=== PATIENT | male | born 1935 | race Caucasian/White ===

== ENCOUNTER 2024-01-06 21:39 | Inpatient (IN) | payer MEDICARE, OTHER ==
[2024-01-06] MEDS ORDERED: Docusate Calcium (SURFAK) 240 MG CAP PO PRN (23:12)
[2024-01-06] MEDS ORDERED: DOPamine 400 MG/D5W 250 ML 250 ML IVPB SCH (23:45)
[2024-01-07 00:10] LABS: Magnesium 2.2 mg/dL (1.6-2.6)
[2024-01-07] MEDS: QUEtiapine 25 MG TAB PO SCH ×2 (00:13→20:45)
[2024-01-07] MEDS: Sodium Chloride 0.9% 500 ML IV SCH (00:13)
[2024-01-07] MEDS: Rosuvastatin 20 MG TAB PO SCH ×2 (00:13→20:46)
[2024-01-07 00:18] LABS: Troponin I 0.093 ng/mL (< 0.028)
[2024-01-07 00:32] LABS: Thyroid Stimulating Hormone 4.4377 uIU/mL (0.35-4.94)
[2024-01-07] MEDS: Atropine Sulfate 1 mg/10 ml Syringe IVP SCH (01:08)
[2024-01-07 03:45] LABS: #Basophils 0.07 10x3/uL (0.0-0.2); #Eosinphils 0.17 10x3/uL (0.0-0.5); #Monocytes 0.92 10x3/uL (0.0-1.1); #Neutrophils 3.72 10x3/uL (1.5-8.4); %Eosinophils 2.5 % (0.0-6.0); %Monocytes 13.7 % (0.0-10.0); %Neutrophils 55.5 % (40.0-75.0); Hematocrit 27.4 % (38.8-50.0); Hemoglobin 9.3 g/dL (13.5-17.5); Mean Corpuscular HGB CONC 33.9 g/dL (32.0-36.0); Mean Corpuscular Hemoglobin 34.7 pg (27.0-33.0); Mean Corpuscular Volume 102.2 fL (81.2-95.1); Mean Platelet Volume 11.7 fL (7.4-10.4); Platelet Count 285 10x3/uL (150-450); RBC Distribution Width 16.6 % (11.5-14.5); Red Blood Cell (RBC) Count 2.68 10x6/uL (4.32-5.72); White Blood Cell (WBC) Count 6.7 10x3/uL (3.5-10.5)
[2024-01-07 03:55] LABS: Anion Gap 14 mmol/L (10-20); BUN (Urea Nitrogen) 38 mg/dL (8.4-25.7); Calc. Creatinine Clearance 23 mL/min (70-130); Calcium 8.7 mg/dL (7.8-10.44); Carbon Dioxide 20 mmol/L (23-31); Chloride 109 mmol/L (98-107); Estimated GFR 30; Glucose 118 mg/dL (83-110); Potassium 4.8 mmol/L (3.5-5.1); Sodium 138 mmol/L (136-145)
[2024-01-07 04:03] LABS: Troponin I 0.083 ng/mL (< 0.028)
[2024-01-07] MEDS: Levothyroxine Sodium 75 MCG TAB PO SCH (05:49)
[2024-01-07] MEDS ORDERED: Enoxaparin 40 MG (0.4 mL) SYRINGE SC SCH (09:00)
[2024-01-07] MEDS: Ferrous Sulfate 325 MG TAB PO SCH (09:17)
[2024-01-07] MEDS: Cyanocobalamin (Vitamin B-12) 1,000 MCG TAB PO SCH (09:18)
[2024-01-07] MEDS: Folic Acid 1 MG TAB PO SCH (09:18)
[2024-01-07] MEDS: Enoxaparin 30 MG (0.3 mL) SYRINGE SC SCH (09:19)
[2024-01-07] MEDS: Sodium Chloride 0.9% 1,000 ML IV SCH (09:27)
[2024-01-07] MEDS: Aspirin 81 mg Enteric Coated Tablet PO SCH (20:46)
[2024-01-08 08:43] LABS: #Basophils 0.04 10x3/uL (0.0-0.2); #Eosinphils 0.12 10x3/uL (0.0-0.5); #Monocytes 0.82 10x3/uL (0.0-1.1); #Neutrophils 3.25 10x3/uL (1.5-8.4); %Basophils 0.7 % (0.0-2.0); %Monocytes 13.9 % (0.0-10.0); %Neutrophils 55.1 % (40.0-75.0); Hematocrit 26.4 % (38.8-50.0); Mean Corpuscular HGB CONC 34.1 g/dL (32.0-36.0); Mean Corpuscular Hemoglobin 35.3 pg (27.0-33.0); Mean Corpuscular Volume 103.5 fL (81.2-95.1); Mean Platelet Volume 12.1 fL (7.4-10.4); Platelet Count 201 10x3/uL (150-450); RBC Distribution Width 16.6 % (11.5-14.5); Red Blood Cell (RBC) Count 2.55 10x6/uL (4.32-5.72); White Blood Cell (WBC) Count 5.9 10x3/uL (3.5-10.5)
[2024-01-08 08:53] LABS: Anion Gap 12 mmol/L (10-20); BUN (Urea Nitrogen) 32 mg/dL (8.4-25.7); Calc. Creatinine Clearance 30 mL/min (70-130); Calcium 8.3 mg/dL (7.8-10.44); Carbon Dioxide 21 mmol/L (23-31); Chloride 112 mmol/L (98-107); Estimated GFR 41; Glucose 103 mg/dL (83-110); Potassium 4.5 mmol/L (3.5-5.1); Sodium 140 mmol/L (136-145)
[2024-01-08] MEDS ORDERED: Gentamicin 80 MG/2 ML VIAL ONE (09:46)
[2024-01-08] MEDS ORDERED: CEFAZOLIN 1 GM VIAL ONE (09:46)
[2024-01-08] MEDS ORDERED: Lidocaine 1% (PF) 30 ML VIAL ONE (09:46)
[2024-01-08] MEDS ORDERED: Midazolam HCl 2 mg/2 ml Vial ONE (10:26)
[2024-01-08] MEDS ORDERED: fentaNYL 50 mcg/mL 1 mL Vial ONE (10:26)
[2024-01-08] MEDS ORDERED: Iopamidol 300 61% 100 ML VIAL FS ONE (14:36)
[2024-01-08 17:03] VITALS: BP 150/64; TEMP 98
== END 2024-01-08 18:45 | disposition home or self-care (01) | DRG 243 ==
LOC: CSHTELE 21:45
PROVIDERS: ADMIT Hospitalist; ATTEND Hospitalist
PROC: 0JH606Z Insertion of Pacemaker, Dual Chamber into Chest Subcutaneous Tissue and Fascia, Open Approach (ICD-10-PCS; principal; 2024-01-08)
PROC: 02H63JZ Insertion of Pacemaker Lead into Right Atrium, Percutaneous Approach (ICD-10-PCS; 2024-01-08)
PROC: 02HK3JZ Insertion of Pacemaker Lead into Right Ventricle, Percutaneous Approach (ICD-10-PCS; 2024-01-08)
DX: I44.2 Atrioventricular block, complete (principal); N17.9 Acute kidney failure, unspecified; N18.4 Chronic kidney disease, stage 4 (severe); I25.10 Atherosclerotic heart disease of native coronary artery without angina pectoris; Z95.2 Presence of prosthetic heart valve; I77.9 Disorder of arteries and arterioles, unspecified; D53.9 Nutritional anemia, unspecified; I12.9 Hypertensive chronic kidney disease with stage 1 through stage 4 chronic kidney disease, or unspecified chronic kidney disease; E03.9 Hypothyroidism, unspecified; Z95.1 Presence of aortocoronary bypass graft; Z88.8 Allergy status to other drugs, medicaments and biological substances; Z79.82 Long term (current) use of aspirin; Z79.899 Other long term (current) drug therapy; Z90.49 Acquired absence of other specified parts of digestive tract; Z66 Do not resuscitate; I45.10 Unspecified right bundle-branch block
CPT/HCPCS: 33208; 36415; 71045; 80048; 82607; 82728; 83735; 84443; 84484; 85025; 93005; 93010; 93306; 99152; 99153; C1785; C1898; J0461; J0690; J1580; J1650; J2001; J2250; J3010; J7030; J7050; Q9967